=== PATIENT | male | born 1950 | race Caucasian/White ===

== ENCOUNTER 2020-07-30 06:56 | Day surgery (SDC) | payer MEDICARE ==
[~2020-07-30] VITALS: Ht 177.8 cm; Wt 76.4 kg
[~2020-07-30 06:56] MED LIST: ATOR-2 PO; DULA1.5P SQ; HYDR12.54 PO; ICOS1CAP PO; METF-446 PO; RIVA2.5T PO; SITA100 PO; SODIUM CHLORIDE 0.9% 1,000 ML IV ONE; SODIUM CHLORIDE 0.9% 1,000 ML ONE; TOLT4CAP13 PO
[2020-07-30] MEDS: SODIUM CHLORIDE 0.9% 1,000 ML IV ONE (07:59)
[2020-07-30] MEDS ORDERED: PIOG45TA63 PO (08:12)
[2020-07-30 08:15] LABS: GLUCOMETER DEV NAME(LOC) SDS.; GLUCOSE,POINT OF CARE 135 MG/DL (70-110)
[2020-07-30 10:03] VITALS: BP 154/77
[2020-07-30] MEDS ORDERED: LIDOCAINE/PF 1% 30 ML VIAL ONE (10:06)
[2020-07-30] MEDS ORDERED: IOHEXOL 300 MG/ML 50 ML VIAL ONE (10:06)
[2020-07-30] MEDS ORDERED: SODIUM BICARBONATE 50 MEQ/50 ML VIAL ONE (10:07)
[2020-07-30] MEDS ORDERED: IOHEXOL 300 MG/ML 100 ML VIAL ONE (10:07)
[2020-07-30] MEDS: LIDOCAINE 1% 30 ML/SOD BICARB 8.4% 4 ML SQ ONE (10:16)
[2020-07-30] MEDS: HEPARIN SODIUM 1000 UNITS/NS 1,000 ML IARTER ONE (10:17)
[2020-07-30] MEDS ORDERED: FentaNYL CITRATE PF 100 MCG/2 ML VIAL ONE (10:19)
[2020-07-30] MEDS: MIDAZOLAM HCL 2 MG/2 ML VIAL IM ONE (10:19)
[2020-07-30] MEDS: FentaNYL CITRATE PF 100 MCG/2 ML VIAL IVP ONE (10:19)
[2020-07-30] MEDS ORDERED: MIDAZOLAM HCL 2 MG/2 ML VIAL ONE (10:19)
[2020-07-30] MEDS ORDERED: NITROGLYCERIN 50 MG/D5% WATER 0 ML ONE (10:20)
[2020-07-30] MEDS: IOHEXOL 300 MG/ML 100 ML VIAL IARTER ONE (10:20)
[2020-07-30] MEDS: IOHEXOL 300 MG/ML 50 ML VIAL IARTER ONE (10:20)
[2020-07-30 10:46] VITALS: BP 120/62
== END 2020-07-30 15:00 | disposition home or self-care (01) ==
LOC: CATHLAB 06:56
PROVIDERS: ATTEND Internal Medicine Interventional Cardiology
DX: R94.39 Abnormal result of other cardiovascular function study (principal); I25.10 Atherosclerotic heart disease of native coronary artery without angina pectoris; I25.2 Old myocardial infarction; E78.5 Hyperlipidemia, unspecified; I10 Essential (primary) hypertension; E11.9 Type 2 diabetes mellitus without complications; Z98.84 Bariatric surgery status; Z98.890 Other specified postprocedural states; Z79.899 Other long term (current) drug therapy
CPT/HCPCS: 82962; 93005; 93458; 99152; J2250; J3010; J3490 ×2; J7030; Q9967 ×2